=== PATIENT | female | born 1975 | race African-American/Black ===

== ENCOUNTER 2024-08-26 17:56 | Inpatient (IN) | payer OTHER ==
[2024-08-26 18:55] LABS: VENOUS BASE EXCESS -13.4 mmol/L (-2-2); VENOUS O2 SATURATION 80.7 % (70-80); VENOUS PH 7.259 (7.310-7.410)
[2024-08-26 18:56] LABS: MCHC 30.9 g/dl (32.2-35.5)
[2024-08-26 18:58] LABS: ABSOLUTE IMMATURE GRANULOCYTES 0.04 x10^3/uL (0.0-0.031); BASOPHILS # 0.04 x10^3/uL (0.01-0.08); HEMATOCRIT 28.5 % (34.1-44.9); HEMOGLOBIN 8.8 g/dL (11.2-15.7); MEAN CELL VOLUME 87.7 fl (79.4-94.8); MEAN PLT VOLUME 10.4 fl (9.4-12.3); MONOCYTE # 0.62 x10^3/uL (0.24-0.86); MONOCYTE % 4.9 % (4.7-12.5); PLATELET COUNT 117 x10^3/uL (182-369); RDW 14.6 % (12.3-16.6)
[2024-08-26 19:09] LABS: INR 1.17 (0.83-1.09); PROTHROMBIN TIME (PATIENT) 12.9 SEC (9.7-13.0)
[2024-08-26 19:24] LABS: POTASSIUM 4.8 mmol/L (3.5-5.1)
[2024-08-26 19:26] LABS: CALCIUM 8.7 mg/dL (8.5-10.1)
[2024-08-26 19:27] LABS: ALBUMIN 3.1 g/dl (3.4-5.0); MAGNESIUM 1.7 mg/dL (1.8-2.4)
[2024-08-26 19:30] LABS: CREATININE 7.2 mg/dL (0.55-1.3)
[2024-08-26 19:31] LABS: BILIRUBIN,TOTAL 0.3 mg/dL (0.2-1); TOT PROT 8.1 g/dl (6.4-8.2)
[2024-08-26] MEDS ORDERED: ACETAMINOPHEN INJECTION 100 ML ONE (19:33)
[2024-08-26 19:35] LABS: N-TERMINAL BNP 10022.6 pg/ml (5-125)
[2024-08-26] MEDS: ACETAMINOPHEN 1000 MG/100 ML BAG IVPB ONE (19:39)
[2024-08-26] MEDS ORDERED: PIPERACILLIN/TAZOB 4.5 GM 4.5 GM/100 ML BAG IVPB ONE (19:59)
[2024-08-26] MEDS: PIPERACILLIN/TAZOB 4.5 GM 4.5 GM in DEXTROSE 5%-WATER 100 ML IVPB ONE (20:05)
[2024-08-26] MEDS ORDERED: VANCOMYCIN 1 GM PREMIX (F) 1 GM/200 ML BAG ONE (20:13)
[2024-08-26] MEDS: SODIUM CHLORIDE 0.9% 500 ML INFUS.BAG IV ONE (20:17)
[2024-08-26] MEDS: VANCOMYCIN 1,000 MG in DEXTROSE 5%-WATER - 250 ML IVPB ONE (21:41)
[2024-08-26 21:59] LABS: EPI CELLS 11 /uL (0-25.1); HYALINE CASTS 1 /uL (0-3.1); PH,URINE 5.5 (5.0-8.0); URINE APPEARANCE CLEAR; URINE BACTERIA 29 /uL (0-1359); URINE BILIRUBIN NEGATIVE (NEGATIVE); URINE COLOR YELLOW; URINE GLUCOSE (UA) NEGATIVE (NEGATIVE); URINE KETONE NEGATIVE (NEGATIVE); URINE LEUK ESTERASE NEGATIVE (NEGATIVE); URINE NITRITE NEGATIVE (NEGATIVE); URINE PROTEIN 3+ (NEGATIVE); URINE UROBILINOGEN 0.2 mg/dL (0.2-1.0); URINE WBC 39 /uL (0-25.8)
[2024-08-26 22:50] LABS: URINE RBC 52.5 /uL (0-23.9)
[2024-08-27] MEDS ORDERED: ACETAMINOPHEN INJECTION 100 ML ONE (01:56)
[2024-08-27] MEDS: ACETAMINOPHEN 1000 MG/100 ML BAG IVPB ONE (01:58)
[2024-08-27] MEDS ORDERED: PIPERACILLIN/TAZOB 3.375 GM 3.375 GM in DEXTROSE 5%-WATER - 50 ML IVPB SCH (03:00)
[2024-08-27] MEDS: HEPARIN NA (PORCINE) 5,000 UNITS/ML 1ML VIAL SQ SCH (05:07)
[2024-08-27] MEDS: LABETALOL HCL 20 MG/4 ML VIAL IVPB ONE (05:07)
[2024-08-27 06:37] VITALS: BMI 25.7
[2024-08-27] MEDS ORDERED: ACETAMINOPHEN 1000 MG/100 ML BAG IVPB PRN (08:56)
[2024-08-27] MEDS: LORATADINE 10 MG TABLET PO SCH (09:21)
[2024-08-27] MEDS: TORSEMIDE 100 MG TABLET PO SCH (09:21)
[2024-08-27] MEDS: traMADol HCL 50 MG TABLET PO PRN ×2 (09:21→21:41)
[2024-08-27] MEDS: CALCITRIOL 0.25 MCG CAPSULE (FP) PO SCH (09:21)
[2024-08-27] MEDS: CALCIUM ACETATE 667 MG CAPSULE (FP) PO SCH (09:22)
[2024-08-27] MEDS: NIFEdipine E.R. 90 MG TABLET PO SCH (09:22)
[2024-08-27] MEDS: CARVEDILOL 25 MG TABLET (FP) PO SCH (09:24)
[2024-08-27 10:40] LABS: HEMATOCRIT 26.5 % (34.1-44.9); MEAN CELL VOLUME 86.3 fl (79.4-94.8)
[2024-08-27 10:42] LABS: HEMOGLOBIN 8.4 g/dL (11.2-15.7); MCHC 31.7 g/dl (32.2-35.5); MEAN PLT VOLUME 10.4 fl (9.4-12.3); PLATELET COUNT 114 x10^3/uL (182-369); RDW 14.7 % (12.3-16.6)
[2024-08-27 10:48] LABS: POTASSIUM 4.9 mmol/L (3.5-5.1)
[2024-08-27 10:50] LABS: ALBUMIN 2.6 g/dl (3.4-5.0); BLOOD UREA NITROGEN 87.5 mg/dL (7-18); CALCIUM 8.1 mg/dL (8.5-10.1)
[2024-08-27 10:54] LABS: CREATININE 7.2 mg/dL (0.55-1.3)
[2024-08-27 10:55] LABS: BILIRUBIN,TOTAL 0.2 mg/dL (0.2-1); TOT PROT 7.2 g/dl (6.4-8.2)
[2024-08-27] MEDS ORDERED: SODIUM CHLORIDE 250 ML IV PRN (11:00)
[2024-08-27] MEDS: ONDANSETRON 4 MG/2 ML VIAL IVPB PRN (14:26)
[2024-08-27] MEDS ORDERED: hydrOXYzine PAMOATE 25 MG CAPSULE (FP) PO PRN (18:15)
[2024-08-27] MEDS: ALPRAZolam 0.25 MG TABLET PO PRN (18:43)
[2024-08-27] MEDS: PIPERACILLIN/TAZOB 2.25 GM 2.25 GM in DEXTROSE 5%-WATER - 50 ML IVPB SCH (18:45)
[2024-08-27] MEDS: SODIUM CHLORIDE 0.9% 500 ML INFUS.BAG IV ONE (19:26)
[2024-08-27] MEDS: GABAPENTIN 100 MG CAPSULE PO SCH (21:41)
[2024-08-28] MEDS: oxyCODONE HCL 5 MG TABLET PO ONE (03:58)
[2024-08-28 06:45] LABS: HEMATOCRIT 24.9 % (34.1-44.9); MEAN CELL VOLUME 86.2 fl (79.4-94.8)
[2024-08-28 06:46] LABS: HEMOGLOBIN 7.7 g/dL (11.2-15.7); MCHC 30.9 g/dl (32.2-35.5); PLATELET COUNT 134 x10^3/uL (182-369); RDW 14.8 % (12.3-16.6)
[2024-08-28 07:06] LABS: POTASSIUM 4.6 mmol/L (3.5-5.1)
[2024-08-28 07:07] LABS: CALCIUM 7.5 mg/dL (8.5-10.1)
[2024-08-28 07:08] LABS: BLOOD UREA NITROGEN 95.6 mg/dL (7-18); MAGNESIUM 1.7 mg/dL (1.8-2.4)
[2024-08-28 07:12] LABS: CREATININE 7.2 mg/dL (0.55-1.3)
[2024-08-28 11:54] LABS: HEPATITIS B SURF AG NON-MATERN NON-REACTIVE (NONREACTIVE)
[2024-08-28] MEDS: LIDOCAINE HCL 1%, 10 MG/ML (20ML VIAL) SQ ONE (11:55)
[2024-08-28] MEDS: ALPRAZolam 0.25 MG TABLET PO ONE (12:16)
[2024-08-28] MEDS ORDERED: ALPRAZolam 1 MG TABLET PO ONE (12:30)
[2024-08-28 13:03] LABS: METHADONE, UR NEGATIVE (NEGATIVE); PHENCYCLIDINE,URINE NEGATIVE (NEGATIVE); URINE BENZODIAZEPINES NEGATIVE (NEGATIVE)
[2024-08-28 13:04] LABS: COCAINE, UR POSITIVE (NEGATIVE); OPIATES, URI POSITIVE (NEGATIVE); URINE AMPHETAMINES NEGATIVE (NEGATIVE); URINE BARBITURATES NEGATIVE (NEGATIVE)
[2024-08-28] MEDS: VANCOMYCIN 500 MG in DEXTROSE 5%-WATER 100 ML IVPB ONE (17:36)
[2024-08-28] MEDS: TRIMETHOBENZAMIDE HCL 200MG/2ML INJ IM PRN (22:01)
[2024-08-29 07:23] LABS: HEMATOCRIT 23.5 % (34.1-44.9); HEMOGLOBIN 7.3 g/dL (11.2-15.7); MCHC 31.1 g/dl (32.2-35.5); MEAN CELL VOLUME 85.5 fl (79.4-94.8); MEAN PLT VOLUME 10.8 fl (9.4-12.3); PLATELET COUNT 140 x10^3/uL (182-369); RDW 14.6 % (12.3-16.6)
[2024-08-29 07:33] LABS: POTASSIUM 4.2 mmol/L (3.5-5.1)
[2024-08-29 07:35] LABS: CALCIUM 7.5 mg/dL (8.5-10.1); MAGNESIUM 1.6 mg/dL (1.8-2.4)
[2024-08-29 07:38] LABS: CREATININE 5.9 mg/dL (0.55-1.3); PHOSPHOROUS 6.2 mg/dL (2.5-4.9)
[2024-08-29 07:39] LABS: BLOOD UREA NITROGEN 68.8 mg/dL (7-18)
[2024-08-29] MEDS ORDERED: MAGNESIUM SULF 50% (8.12 MEQ/2 ML-1 GM VIAL) IVPB ONE (07:50)
[2024-08-29] MEDS: MAGNESIUM SULF 50% (8.12 MEQ/2 ML-1 GM VIAL) IVPB ONE (10:30)
[2024-08-29] MEDS: MAGNESIUM OXIDE 400 MG TABLET (FP) PO ONE (13:38)
[2024-08-30] MEDS: oxyCODONE HCL 5 MG TABLET PO ONE (01:36)
[2024-08-30 07:54] LABS: HEMATOCRIT 23.8 % (34.1-44.9); HEMOGLOBIN 7.3 g/dL (11.2-15.7); MCHC 30.7 g/dl (32.2-35.5); MEAN CELL VOLUME 87.2 fl (79.4-94.8); MEAN PLT VOLUME 10.1 fl (9.4-12.3); PLATELET COUNT 171 x10^3/uL (182-369); RDW 14.8 % (12.3-16.6)
[2024-08-30 08:08] LABS: POTASSIUM 4.4 mmol/L (3.5-5.1)
[2024-08-30 08:13] LABS: CALCIUM 8.4 mg/dL (8.5-10.1); MAGNESIUM 2.5 mg/dL (1.8-2.4)
[2024-08-30 08:17] LABS: CREATININE 5.8 mg/dL (0.55-1.3); PHOSPHOROUS 6.5 mg/dL (2.5-4.9)
[2024-08-30] MEDS ORDERED: CEFAZOLIN 2 GM/D5W 2 GM/50 ML ML IVPB ONE (13:42)
[2024-08-30 14:19] VITALS: BP 112/65; PULSE 75; RESP 16; TEMP 98.4
[2024-08-30] MEDS: POLYETHYLENE GLYCOL (HEALTHYLAX) 3350 17 GM PACKET PO SCH (14:56)
[2024-08-30] MEDS: ALPRAZolam 0.25 MG TABLET PO PRN (14:56)
[2024-08-30] MEDS: NAFCILLIN - 2 GM in DEXTROSE 5%-WATER 100 ML IVPB SCH (15:51)
== END 2024-08-30 17:39 | disposition left against medical advice (07) | DRG 466 ==
LOC: JER 17:56 → JERBED 22:16 → J4W 08-27 04:18
PROVIDERS: ADMIT Internal Medicine; ATTEND Internal Medicine
PROC: 05PYX3Z Removal of Infusion Device from Upper Vein, External Approach (ICD-10-PCS; principal; 2024-08-28)
DX: T82.7XXA Infection and inflammatory reaction due to other cardiac and vascular devices, implants and grafts, initial encounter (principal); N18.6 End stage renal disease; A41.01 Sepsis due to Methicillin susceptible Staphylococcus aureus; E87.20 Acidosis, unspecified; I12.0 Hypertensive chronic kidney disease with stage 5 chronic kidney disease or end stage renal disease; I47.10 Supraventricular tachycardia, unspecified; E87.70 Fluid overload, unspecified; D64.9 Anemia, unspecified; F17.200 Nicotine dependence, unspecified, uncomplicated; F40.00 Agoraphobia, unspecified; F41.9 Anxiety disorder, unspecified; Y83.9 Surgical procedure, unspecified as the cause of abnormal reaction of the patient, or of later complication, without mention of misadventure at the time of the procedure
CPT/HCPCS: 0241U-QW; 36415; 71045-TC-FY; 71250-TC; 80048; 80053; 80307; 81003; 82306; 82607; 82803; 82962; 83605; 83735; 83880; 84100; 84439; 84443; 84484; 85025; 85027; 85610; 85730; 86803; 86850; 86900; 86901; 87040; 87070; 87081; 87086; 87186; 87205; 87340; 87517; 87651; 93005; 93010; 93306-TC; 99291; G0480; J0131; J1644